=== PATIENT | female | born 1990 | race Caucasian/White ===

== ENCOUNTER 2019-02-04 14:41 | Emergency (ER) | payer OTHER ==
[~2019-02-04] VITALS: Ht 152.4 cm; Wt 63.5 kg
[~2019-02-04 14:41] MED LIST: ANAPROX DS550 MG PO; BACTRIM DS 8001 TA1 PO; CIPRO250 MG PO; COLACE-T100 MG; COLACE-T100 MG PO; FE-TABS325 MG PO; HYDROCODONE BIT1 T11 PO; MOTRIN800 MG PO; Miralax Powder255 GM PO; Motrin,Rufen800 MG; NKHM; OMEPRAZOLE40 MG PO; PERCOCET 325 MG1 TA2; PERCOCET 325 MG1 TA2 PO; PYRIDIUM200 MG PO; VALIUM5 MG PO; Vicodin 5/500 505 MG PO; ZOFRAN ODT4 MG SL; Zofran4 MG PO
[2019-02-04] MEDS ORDERED: CLEOCIN HCL150 MG PO (15:02)
[2019-02-04] MEDS ORDERED: IBU800 MG PO (15:02)
== END 2019-02-04 15:21 | disposition home or self-care (01) ==
LOC: ED 14:41
DX: K04.7 Periapical abscess without sinus (principal); Z88.0 Allergy status to penicillin; Z79.899 Other long term (current) drug therapy

== ENCOUNTER 2019-10-06 03:02 | Observation (INO) | payer OTHER ==
[~2019-10-06] VITALS: Ht 152.4 cm; Wt 59.9 kg
[~2019-10-06 03:02] MED LIST changes: +CLEOCIN HCL150 MG PO; +IBU800 MG PO
[2019-10-06 03:07] VITALS: BP 138/83
[2019-10-06 03:21] LABS: BILIRUBIN NEGATIVE (NEGATIVE); BLOOD 2+ (NEGATIVE); CLARITY CLOUDY (CLEAR); COLOR YELLOW (YELLOW); GLUCOSE NEGATIVE (NEGATIVE); KETONE NEGATIVE (NEGATIVE); LEUKO ESTERASE 2+ (NEGATIVE); NITRITE POSITIVE (NEGATIVE); SPECIFIC GRAVITY 1.015 (1.005-1.030); UROBILINOGEN 0.2 E.U./dl (0.2-1.0)
[2019-10-06 03:39] LABS: BACTERIA 3+; WBC TNTC wbc/hpf (0-5); YEAST TRACE
[2019-10-06 03:44] LABS: BASO % 0.2 % (0.0-1.0); EOS # 0.3 10*3/uL (0.0-0.4); EOS % 1.6 % (1.0-4.0); HEMATOCRIT 34.1 % (37.0-47.0); LYMPH # 1.8 10*3/uL (1.3-4.4); LYMPH % 11.4 % (27.0-41.0); MEAN CORPUSCULAR HGB 27.4 pg (27.0-31.0); MEAN CORPUSCULAR HGB CONC 32.3 g/dl (33.0-37.0); MEAN PLATELET VOLUME 10.4 fl (9.6-12.3); MONO # 1.2 10*3/uL (0.1-1.0); MONO % 7.6 % (3.0-9.0); NEUT # 12.5 10*3/uL (2.3-7.9); NEUT % 78.6 % (47.0-73.0); PLATELET COUNT AUTOMATED 305 10*3/uL (130-400); RED BLOOD COUNT 4.01 10*6/uL (4.10-5.10); RED CELL DISTRI WIDTH 14.9 % (0-14.5); WHITE BLOOD COUNT 15.9 10*3/uL (4.8-10.8)
[2019-10-06 03:56] LABS: BUN 11 mg/dl (7-24); CHLORIDE 100 mmol/L (98-107); CREATININE 0.88 mg/dL (0.55-1.02); POTASSIUM 3.4 mmol/L (3.5-5.1); SODIUM 133 mmol/L (136-145)
[2019-10-06 05:33] VITALS: BP 132/80
[2019-10-06] MEDS ORDERED: HYDROCODONE-AC1 EAC1 PO (06:30)
[2019-10-06] MEDS ORDERED: PHENERGAN25 M3 PO (06:30)
[2019-10-06] MEDS ORDERED: TRAMADOL HCL50 MG PO (06:30)
[2019-10-06] MEDS ORDERED: ARIPIPRAZOLE10 MG PO (06:31)
[2019-10-06] MEDS ORDERED: TRAZODONE100 MG PO (06:31)
[2019-10-06] MEDS ORDERED: DULOXETINE HCL30 MG PO (06:32)
[2019-10-06] MEDS ORDERED: KELNOR 1-35 281 EACH PO (06:34)
[2019-10-06 08:00] VITALS: BP 118/71
[2019-10-06 12:00] VITALS: BP 119/80
[2019-10-06 16:00] VITALS: BP 104/68
[2019-10-06 20:00] VITALS: BP 119/68
[2019-10-07] VITALS: BP 112/65
[2019-10-07 06:13] LABS: BASO % 0.2 % (0.0-1.0); EOS # 0.2 10*3/uL (0.0-0.4); EOS % 1.8 % (1.0-4.0); HEMATOCRIT 30.2 % (37.0-47.0); LYMPH # 1.6 10*3/uL (1.3-4.4); LYMPH % 15.3 % (27.0-41.0); MEAN CORPUSCULAR HGB 27.4 pg (27.0-31.0); MEAN CORPUSCULAR HGB CONC 31.8 g/dl (33.0-37.0); MEAN PLATELET VOLUME 10.6 fl (9.6-12.3); MONO % 9.5 % (3.0-9.0); NEUT # 7.4 10*3/uL (2.3-7.9); NEUT % 72.5 % (47.0-73.0); PLATELET COUNT AUTOMATED 300 10*3/uL (130-400); RED BLOOD COUNT 3.51 10*6/uL (4.10-5.10); RED CELL DISTRI WIDTH 15.5 % (0-14.5); WHITE BLOOD COUNT 10.2 10*3/uL (4.8-10.8)
[2019-10-07 06:34] LABS: BUN 5 mg/dl (7-24); CHLORIDE 108 mmol/L (98-107); CREATININE 0.66 mg/dL (0.55-1.02); POTASSIUM 3.8 mmol/L (3.5-5.1); SODIUM 135 mmol/L (136-145)
[2019-10-07 06:40] LABS: ALBUMIN 2.3 gm/dl (3.1-4.5); ALKALINE PHOSPHATASE 202 U/L (45-117); BUN 5 mg/dl (7-24); CHLORIDE 107 mmol/L (98-107); CREATININE 0.64 mg/dL (0.55-1.02); POTASSIUM 3.8 mmol/L (3.5-5.1); SGOT/AST 21 IU/L (3-35); SGPT/ALT 33 U/L (12-78); SODIUM 137 mmol/L (136-145); TOTAL PROTEIN 6.4 gm/dL (6.4-8.2)
[2019-10-07 08:00] VITALS: BP 109/69
[2019-10-07] MEDS ORDERED: LEVAQUIN750 M1 PO (10:59)
== END 2019-10-07 11:52 | disposition home or self-care (01) ==
LOC: ED 03:02 → EDHOLD 05:18 → 4E 05:18
PROVIDERS: Emergency Medicine; Student in an Organized Health Care Education/Training Program; ADMIT Internal Medicine
DX: N12 Tubulo-interstitial nephritis, not specified as acute or chronic (principal); D72.829 Elevated white blood cell count, unspecified; D64.9 Anemia, unspecified; E87.1 Hypo-osmolality and hyponatremia; E87.6 Hypokalemia; R31.9 Hematuria, unspecified; E66.3 Overweight; N39.0 Urinary tract infection, site not specified; Z72.0 Tobacco use

== ENCOUNTER 2019-12-09 08:28 | Emergency (ER) | payer OTHER ==
[~2019-12-09] VITALS: Ht 152.4 cm; Wt 60.8 kg
[~2019-12-09 08:28] MED LIST changes: +ARIPIPRAZOLE10 MG PO; +DULOXETINE HCL30 MG PO; +HYDROCODONE-AC1 EAC1 PO; +KELNOR 1-35 281 EACH PO; +LEVAQUIN750 M1 PO; +PHENERGAN25 M3 PO; +TRAMADOL HCL50 MG PO; +TRAZODONE100 MG PO
[2019-12-09] MEDS ORDERED: NAPROSYN500 MG PO (09:48)
[2019-12-09] MEDS ORDERED: CLINDAMYCIN HC300 MG PO (09:48)
== END 2019-12-09 10:04 | disposition home or self-care (01) ==
LOC: ED 08:28
DX: K04.7 Periapical abscess without sinus (principal); Z88.0 Allergy status to penicillin; Z79.899 Other long term (current) drug therapy; Z79.2 Long term (current) use of antibiotics

== ENCOUNTER 2023-03-14 09:33 | Emergency (ER) | payer OTHER ==
[~2023-03-14] VITALS: Ht 152.4 cm; Wt 52.2 kg
[~2023-03-14 09:33] MED LIST changes: +CLINDAMYCIN HC300 MG PO; +NAPROSYN500 MG PO
[2023-03-14] MEDS ORDERED: CYCLOBENZAPRINE10 MG PO (09:53)
[2023-03-14] MEDS ORDERED: MELOXICAM15 MG PO (09:53)
== END 2023-03-14 10:39 | disposition home or self-care (01) ==
LOC: ED 09:33
DX: M75.41 Impingement syndrome of right shoulder (principal); F17.200 Nicotine dependence, unspecified, uncomplicated; Z88.0 Allergy status to penicillin; Z87.42 Personal history of other diseases of the female genital tract; Z90.49 Acquired absence of other specified parts of digestive tract

== ENCOUNTER 2023-09-06 07:07 | Emergency (ER) | payer OTHER ==
[~2023-09-06] VITALS: Ht 165.1 cm; Wt 49.0 kg
[~2023-09-06 07:07] MED LIST changes: +CYCLOBENZAPRINE10 MG PO; +MELOXICAM15 MG PO
[2023-09-06] MEDS ORDERED: SODIUM CHLORIDE 0.9% 1,000 ML IV ONE (07:35)
[2023-09-06 07:45] LABS: BILIRUBIN Negative (Negative); BLOOD Trace-Lysed (Negative); CLARITY Clear (Clear); COLOR Yellow (Yellow); GLUCOSE Negative (Negative); KETONE Negative (Negative); LEUKO ESTERASE Negative (Negative); NITRITE Negative (Negative); PH 5.5 (4.5-8.0); SPECIFIC GRAVITY >= 1.030 (1.001-1.030)
[2023-09-06 07:45] LABS: BASO % 0.4 % (0.0-1.0); EOS # 0.2 10*3/uL (0.0-0.4); EOS % 2.8 % (1.0-4.0); HEMATOCRIT 38.4 % (37.0-47.0); LYMPH # 3.2 10*3/uL (1.3-4.4); LYMPH % 37.4 % (27.0-41.0); MEAN CELL VOLUME 87.9 fl (81.0-99.0); MEAN CORPUSCULAR HGB 29.1 pg (27.0-31.0); MEAN CORPUSCULAR HGB CONC 33.1 g/dl (33.0-37.0); MEAN PLATELET VOLUME 9.9 fl (9.6-12.3); MONO # 0.5 10*3/uL (0.1-1.0); MONO % 5.4 % (3.0-9.0); NEUT # 4.6 10*3/uL (2.3-7.9); NEUT % 53.9 % (47.0-73.0); PLATELET COUNT AUTOMATED 346 10*3/uL (130-400); RED BLOOD COUNT 4.37 10*6/uL (4.10-5.10); RED CELL DISTRI WIDTH 14.3 % (0-14.5); WHITE BLOOD COUNT 8.6 10*3/uL (4.8-10.8)
[2023-09-06] MEDS ORDERED: MORPHINE Sulfate 2 MG/ML SYR IV ONE (07:55)
[2023-09-06] MEDS ORDERED: IOHEXOL 300 MG/ML 100 ML VIAL IV ONE (08:00)
[2023-09-06 08:09] LABS: BACTERIA 1+; EPITHELIAL CELLS 21-30; MUCOUS 1+; WBC 0-2 wbc/hpf (0-5)
[2023-09-06 08:10] LABS: ALKALINE PHOSPHATASE 121 U/L (46-116); BUN 11 mg/dl (9-23); CHLORIDE 106 mmol/L (98-107); LIPASE 27 U/L (12-53); POTASSIUM 4.1 mmol/L (3.4-5.1); SGPT/ALT 38 U/L (5-49); TOTAL PROTEIN 6.2 gm/dL (6.0-8.0)
[2023-09-06] MEDS ORDERED: CIPRO500 MG PO (10:27)
[2023-09-06] MEDS ORDERED: Ondansetron4 MG PO (10:27)
[2023-09-06] MEDS ORDERED: ACID REDUCER10 MG PO (10:27)
== END 2023-09-06 10:36 | disposition home or self-care (01) ==
LOC: ED 07:07
PROVIDERS: Internal Medicine
DX: K29.70 Gastritis, unspecified, without bleeding (principal); N60.12 Diffuse cystic mastopathy of left breast; N60.11 Diffuse cystic mastopathy of right breast; N39.0 Urinary tract infection, site not specified; R11.2 Nausea with vomiting, unspecified; F17.200 Nicotine dependence, unspecified, uncomplicated; Z88.0 Allergy status to penicillin; Z90.49 Acquired absence of other specified parts of digestive tract; Z87.42 Personal history of other diseases of the female genital tract; Z98.890 Other specified postprocedural states